=== PATIENT | female | born 1935 | race Caucasian/White ===

== ENCOUNTER → 2017-04-28 | Outpatient (CLI) | payer MEDICARE, OTHER ==
[~2017-04-28] MED LIST: ACYC400 PO; ACYC800 PO; AMLO5 PO; ASPI325 PO; ASPI81EC; ASPI81EC PO; ATOR40TA PO; CALC.25 PO; CALCAVITDA PO; CALPHO600; CARV3.125 PO; CEPH500 PO; CHOL10002 PO; CLOP75 PO; CYAN500 PO; Carafate1 GM/10 ML PO; DIPATR PO; EPIN.3I; ERGO400 PO; ESCI10 PO; ESCI20; ESOM20; FAMO20 PO; FEXO180; FURO100EL PO; FURO20 PO; FURO40 PO; GEMF600; GEMF600 PO; GLYB2.5; HYOS.125 SL; INSR10I SC; INSULANI SUBQ; INSULANPEN SC; ISOMON30 PO; KRILL OIL500 MG PO; LEVSOD25; LEVSOD50 PO; LISI20; LISI5 PO; LORA10ER PO; METF500; METF850 PO; METO50ER PO; MULVITMINF; NITR.4SL SL; OMEP20ER PO; OMEP40CA12 PO; Omeprazole20 M1; Omeprazole20 M1 PO; PANT40 PO; POTA10T PO; POTCHL10ER PO; PRED20 PO; PROBIOTIC1 EAC1 PO; Pepcid20 MG PO; Prinivil10 MG PO; RANI150 PO; RANO500T PO; SERT25 PO; SIMV40; SIMV40 PO; SITA100T2 PO; SUCR1 PO; VITAMIN D-32000 UNIT PO
== END | disposition home or self-care (01) ==
LOC: LAB 17:46 → LAB SHORT 17:46
DX: R30.0 Dysuria (principal)
CPT/HCPCS: 87077; 87086; 87186

== ENCOUNTER 2017-06-12 09:40 | Emergency (ER) | payer MEDICARE ==
[~2017-06-12] VITALS: Ht 152.4 cm; Wt 81.7 kg
[~2017-06-12 09:40] MED LIST changes: -ACYC800 PO; -CEPH500 PO; -Carafate1 GM/10 ML PO; -FURO40 PO; +INSULANI SC; -INSULANPEN SC; -POTA10T PO
[2017-06-12 10:04] LABS: BASOPHILS ABSOLUTE AUTO 0.01 K/mm3 (0.00-0.23); BASOPHILS PERCENT AUTO 0 % (0-2); EOSINOPHILS ABSOLUTE AUTO 0.14 K/mm3 (0.00-0.68); EOSINOPHILS PERCENT AUTO 2 % (0-6); Hemoglobin 11.2 g/dL (11.5-16.0); IMMATURE GRAN ABSOLUTE AUTO 0.04 K/mm3 (0.00-0.10); IMMATURE GRAN PERCENT AUTO 1 % (0-1); LYMPHOCYTES ABSOLUTE AUTO 1.61 K/mm3 (0.84-5.20); LYMPHOCYTES PERCENT AUTO 25 % (21-46); MONOCYTES ABSOLUTE AUTO 0.47 K/mm3 (0.16-1.47); MONOCYTES PERCENT AUTO 7 % (4-13); Mean Corpuscular HGB 30.6 pg (26.0-34.0); Mean Corpuscular Volume 96 fL (80-100); Mean Platelet Volume 9.6 fL (9.1-12.4); NEUTROPHILS ABSOLUTE AUTO 4.13 K/mm3 (1.96-9.15); NEUTROPHILS PERCENT AUTO 65 % (41-73); Platelet Count 211 K/mm3 (150-400); RDW Coefficient Variation 15.8 % (11.7-14.2); RDW Standard Deviation 55.1 fL (35.1-46.3); Red Blood Cell Count 3.66 M/mm3 (3.80-5.20)
[2017-06-12] MEDS ORDERED: CLOP75 PO (10:06)
[2017-06-12 10:19] LABS: Alanine Aminotransfer (ALT/SGP 22 U/L (12-78); Albumin/Globulin Ratio 0.8 (0.8-1.8); Alk Phos 82 U/L (50-136); Anion Gap 5 mmol/L (6-16); Aspartate Aminotrans (AST/SGOT 23 U/L (12-37); Bilirubin, Total 0.5 mg/dL (0.1-1.0); Blood Urea Nitrogen 21 mg/dL (8-24); Bun/Creatinine Ratio 15.1 (12.0-20.0); CO2, Blood 28 mmol/L (21-32); Calcium, Blood 8.3 mg/dL (8.5-10.1); Chloride, Blood 109 mmol/L (98-108); Creatinine, Blood 1.39 mg/dL (0.40-1.00); Globulin, Blood 3.7 g/dL (2.2-4.0); Glomerular Filtration Rate 39 (60-); Glucose, Blood 79 mg/dL (70-99); Potassium, Blood 3.7 mmol/L (3.5-5.5); Sodium, Blood 142 mmol/L (136-145); Total Protein, Blood 6.7 g/dL (6.4-8.2); Troponin I <0.015 ng/mL (0.000-0.040)
== END 2017-06-12 13:58 | disposition home or self-care (01) ==
LOC: ER 09:40
PROVIDERS: Emergency Medicine
DX: R55 Syncope and collapse (principal); S50.01XA Contusion of right elbow, initial encounter; S20.411A Abrasion of right back wall of thorax, initial encounter; I25.2 Old myocardial infarction; Z87.891 Personal history of nicotine dependence; Z88.0 Allergy status to penicillin; Z88.2 Allergy status to sulfonamides; Z88.8 Allergy status to other drugs, medicaments and biological substances; Z91.018 Allergy to other foods; Z91.013 Allergy to seafood; Z91.010 Allergy to peanuts; Z79.899 Other long term (current) drug therapy; Z79.4 Long term (current) use of insulin; W18.30XA Fall on same level, unspecified, initial encounter; Y92.002 Bathroom of unspecified non-institutional (private) residence as the place of occurrence of the external cause
CPT/HCPCS: 71046; 80053; 84484; 85025; 93005; 93010; 99284; J7120

== ENCOUNTER → 2017-07-29 | Outpatient (CLI) | payer MEDICARE ==
[2017-07-30 12:58] LABS: Percent Saturation 34.1 % (15.0-50.0)
== END ==
LOC: LAB SHORT 12:31
PROVIDERS: Internal Medicine Hematology & Oncology
DX: R53.83 Other fatigue (principal); R55 Syncope and collapse; D50.8 Other iron deficiency anemias; D50.9 Iron deficiency anemia, unspecified; E53.8 Deficiency of other specified B group vitamins
CPT/HCPCS: 82607; 82728; 82746; 83540; 83550

== ENCOUNTER 2017-08-13 14:11 | Emergency (ER) | payer MEDICARE ==
[~2017-08-13] VITALS: Ht 152.4 cm; Wt 81.7 kg
[~2017-08-13 14:11] MED LIST changes: -INSULANI SC; +INSULANPEN SC
[2017-08-13] MEDS ORDERED: FURO40 PO (14:42)
[2017-08-13] MEDS ORDERED: Omeprazole20 M1 PO (14:43)
[2017-08-13 14:55] LABS: Source, Urine Clean Catch
[2017-08-13 15:03] LABS: BASOPHILS ABSOLUTE AUTO 0.01 K/mm3 (0.00-0.23); BASOPHILS PERCENT AUTO 0 % (0-2); EOSINOPHILS ABSOLUTE AUTO 0.07 K/mm3 (0.00-0.68); EOSINOPHILS PERCENT AUTO 1 % (0-6); Hematocrit 36.8 % (33.0-51.0); Hemoglobin 11.9 g/dL (11.5-16.0); IMMATURE GRAN ABSOLUTE AUTO 0.04 K/mm3 (0.00-0.10); IMMATURE GRAN PERCENT AUTO 1 % (0-1); LYMPHOCYTES ABSOLUTE AUTO 1.78 K/mm3 (0.84-5.20); LYMPHOCYTES PERCENT AUTO 26 % (21-46); MONOCYTES ABSOLUTE AUTO 0.61 K/mm3 (0.16-1.47); MONOCYTES PERCENT AUTO 9 % (4-13); Mean Corpuscular HGB 31.7 pg (26.0-34.0); Mean Corpuscular HGB Conc 32.3 g/dL (31.5-36.5); Mean Corpuscular Volume 98 fL (80-100); Mean Platelet Volume 9.5 fL (9.1-12.4); NEUTROPHILS PERCENT AUTO 64 % (41-73); NRBC ABSOLUTE 0.09 K/mm3 (0.00-0.02); NRBC Auto 1.3 /100 WBC (0.0-0.2); Platelet Count 266 K/mm3 (150-400); RDW Standard Deviation 49.4 fL (35.1-46.3); Red Blood Cell Count 3.75 M/mm3 (3.80-5.20); White Blood Cell Count 6.91 K/mm3 (4.00-11.30)
[2017-08-13 15:04] LABS: Bilirubin, Urine Neg (Neg); Blood, Urine Neg (Neg); Glucose Qualitative, Urine Neg (Neg); Ketones, Urine Neg (Neg); Leukocyte Esterase, Urine 1+ (Neg); Nitrite, Urine Neg (Neg); Protein, Urine Neg (Neg); Specific Gravity, Urine 1.025 (1.003-1.022); Urobilinogen, Urine NORM (Normal)
[2017-08-13 15:21] LABS: Appearance, Urine Clear (Clear); Color, Urine Yellow (P-Yellow)
[2017-08-13 15:23] LABS: Bacteria Mod /hpf; Hyaline Casts 0-2 /lpf (0-2); Red Blood Cells, Urine 0-2 /hpf (0-2); Squamous Epithelial Cells Mod /hpf (Few)
[2017-08-13 15:26] LABS: Alanine Aminotransfer (ALT/SGP 16 U/L (12-78); Albumin, Blood 3.5 g/dL (3.4-5.0); Albumin/Globulin Ratio 0.8 (0.8-1.8); Alk Phos 88 U/L (50-136); Anion Gap 9 mmol/L (6-16); Aspartate Aminotrans (AST/SGOT 25 U/L (12-37); Bilirubin, Total 0.6 mg/dL (0.1-1.0); Blood Urea Nitrogen 39 mg/dL (8-24); Bun/Creatinine Ratio 22.8 (12.0-20.0); CO2, Blood 26 mmol/L (21-32); Calcium, Blood 10.4 mg/dL (8.5-10.1); Chloride, Blood 101 mmol/L (98-108); Creatinine, Blood 1.71 mg/dL (0.40-1.00); Globulin, Blood 4.3 g/dL (2.2-4.0); Glomerular Filtration Rate 30 (60-); Glucose, Blood 154 mg/dL (70-99); Potassium, Blood 4.4 mmol/L (3.5-5.5); Sodium, Blood 136 mmol/L (136-145); Total Protein, Blood 7.8 g/dL (6.4-8.2); Troponin I <0.015 ng/mL (0.000-0.040)
[2017-08-13] MEDS ORDERED: CEPH500 PO (16:19)
== END 2017-08-13 17:35 | disposition home or self-care (01) ==
LOC: ER 14:11
PROVIDERS: Physician Assistant
DX: I95.1 Orthostatic hypotension (principal); N39.0 Urinary tract infection, site not specified; Z91.018 Allergy to other foods; Z91.013 Allergy to seafood; Z88.2 Allergy status to sulfonamides; Z88.0 Allergy status to penicillin; Z88.8 Allergy status to other drugs, medicaments and biological substances; Z91.010 Allergy to peanuts; Z79.899 Other long term (current) drug therapy; Z79.4 Long term (current) use of insulin; Z87.891 Personal history of nicotine dependence
CPT/HCPCS: 36415; 80053; 81001; 84484; 85025; 87086; 93005; 93010; 96360; 99283-25; J7030

== ENCOUNTER → 2017-10-25 | Outpatient (CLI) | payer MEDICARE ==
[~2017-10-25] MED LIST changes: +CEPH500 PO; +FURO40 PO
== END | disposition home or self-care (01) ==
LOC: LAB SHORT 14:47 → LAB UCHC 14:47
DX: R30.0 Dysuria (principal)
CPT/HCPCS: 87077; 87086; 87186

== ENCOUNTER → 2018-03-08 | Outpatient (CLI) | payer MEDICARE, OTHER ==
[~2018-03-08] MED LIST changes: +ACYC800 PO; +Carafate1 GM/10 ML PO; +POTA10T PO
== END | disposition home or self-care (01) ==
LOC: LAB 17:35 → LAB SHORT 17:35
DX: N39.0 Urinary tract infection, site not specified (principal)
CPT/HCPCS: 87086

== ENCOUNTER 2019-04-19 06:24 | Day surgery (SDC) | payer MEDICARE ==
[~2019-04-19] VITALS: Ht 154.9 cm; Wt 84.8 kg
[~2019-04-19 06:24] MED LIST changes: +PIOG15 PO; +VITAMIN B122500 MCG PO; +VITAMIN D350 MCG PO
--- NOTE | 2019-04-19 07:04 | NUR ---
INTO SDS VIA WHEELCHAIR. PT DENIES PAIN AT THIS TIME. History, Chart, Medications and Allergies reviewed before start of procedure.Lungs clear T/O to Auscultation. Patient confirms NPO status and agrees with scheduled surgery. Patient reports completing Chlorhexadine shower X2 prior to admission to hospital.Surgical site prepped with 2% Chlorhexidine cloth wipe.
--- NOTE | 2019-04-19 07:39 | NUR ---
NOSYN AND PERIDEX DONE PER ORTHO PROTOCOL.
--- NOTE | 2019-04-19 13:45 | NUR ---
pt arrived to room 217 from pacu s/p r total knee pt denies pain stated she is just tired pt had some ice water only can wiggle toes but cannot feel them stated she can feel her upper thighs dressing c/d/i with polar pack offered food pt declined at this time
--- NOTE | 2019-04-19 15:25 | NUR ---
PT ABLE TO MOVE HER LEGS INC PAIN PO PAIN MEDS GIVEN PHYSICAL THERAPY NOTIFIED TO COME AND WORK WITH PT
--- NOTE | 2019-04-19 16:50 | NUR ---
PT SITTING UP IN CHAIR RESTING
--- NOTE | 2019-04-19 18:22 | NUR ---
PT EATING DINNER MEDS GIVEN SCHED PT VISITING WITH FRIEND
[2019-04-20 04:09] LABS: BASOPHILS ABSOLUTE AUTO 0.01 K/mm3 (0.00-0.23); BASOPHILS PERCENT AUTO 0 % (0-2); EOSINOPHILS PERCENT AUTO 0 % (0-6); Hematocrit 29.3 % (33.0-51.0); Hemoglobin 9.1 g/dL (11.5-16.0); IMMATURE GRAN ABSOLUTE AUTO 0.04 K/mm3 (0.00-0.10); IMMATURE GRAN PERCENT AUTO 0 % (0-1); LYMPHOCYTES ABSOLUTE AUTO 0.87 K/mm3 (0.84-5.20); LYMPHOCYTES PERCENT AUTO 7 % (21-46); MONOCYTES ABSOLUTE AUTO 0.95 K/mm3 (0.16-1.47); MONOCYTES PERCENT AUTO 8 % (4-13); Mean Corpuscular HGB 30.6 pg (26.0-34.0); Mean Corpuscular HGB Conc 31.1 g/dL (31.5-36.5); Mean Corpuscular Volume 99 fL (80-100); Mean Platelet Volume 9.7 fL (9.1-12.4); NEUTROPHILS ABSOLUTE AUTO 9.84 K/mm3 (1.96-9.15); NEUTROPHILS PERCENT AUTO 84 % (41-73); Platelet Count 204 K/mm3 (150-400); RDW Coefficient Variation 13.5 % (11.7-14.2); RDW Standard Deviation 48.7 fL (35.1-46.3); Red Blood Cell Count 2.97 M/mm3 (3.80-5.20); White Blood Cell Count 11.71 K/mm3 (4.00-11.30)
[2019-04-20 04:24] LABS: Bun/Creatinine Ratio 22.7 (12.0-20.0); Calcium, Blood 8.5 mg/dL (8.5-10.1); Creatinine, Blood 1.54 mg/dL (0.40-1.00); Potassium, Blood 4.5 mmol/L (3.5-5.5)
[2019-04-20] MEDS ORDERED: CLOP75 PO (07:12)
--- NOTE | 2019-04-20 07:29 | NUR ---
SUMMARY PT TOLERATING PO PAIN MEDS. REQUIRED 1 DOSE OF DILAUDID 0.5 MG FOR BREAKTHROUGH AND SLEPT AFTER. REPORTS PLEASED WITH PAIN CONTROL. VOIDING.
[2019-04-20] MEDS ORDERED: Plavix75 MG PO (07:43)
--- NOTE | 2019-04-20 15:58 | NUR ---
PATIENT NOTE: PATIENT WAS BLADDER SCANNED DUE TO RETENTION WITH THE RESULT NUMBER OF 245 ML. SHE WAS ABLE TO AMBULATE WITH ASSISTANCE TO THE BATHROOM. SHE DID NOT COMPLAIN OF DIZZINESS OR NAUSEA LIKE SHE HAD THE LAST TIME SHE WAS TRYING TO AMBULATE TO THE BATHROOM. SHE FELT THAT SHE HAD "EMPTIED EVERYTHING" WHILE IN THE BATHROOM. PATIENT WAS ABLE TO VOID 150 ML, AND THEN WAS BLADDER SCANNED AFTER WITH 195 ML LEFT IN HER BLADDER. WILL CONTINUE TO MONITOR AND ENCOURAGE AMBULATING TO THE BATHROOM DURING SHIFT.
--- NOTE | 2019-04-20 19:38 | NUR ---
SHIFT SUMMARY: PATIENT'S BP WAS GOING ON THE LOWER END EARLIER IN THE DAY, BUT HAS BEEN BACK TO BASELINE. THE REST OF HER VITALS HAVE BEEN WITHIN NORMAL LIMITS. PATIENT HAD SOME RETENTION WITH VOIDING HER URINE, BUT WAS ABLE TO FINALLY VOID 150 EARILER (SEE OTHER NOTES FOR DETAIL). PATIENT HAS NOT NEEDED ANY PAIN MEDICATIONS THROUGHOUT SHIFT, AND HAS ONLY RECIEVED TYLENOL PERSCRIBED. SHE HAS BEEN ABLE TO AMBULATE WITH A WALKER AROUND THE ROOM WITH ONE PERSON ASSIST. SHE HAS HAD ICE ON HER SURGICAL SITE FOR MOST OF THE DAY, AND IS CURRENTLY TAKING A BREAK. SHE HASN'T BEEN EATING MUCH DURING THE DAY BECAUSE OF HER GERD SINCE HER THROAT HAS BEEN BURNING. SHE CURRENTLY HAS ATTENDS ON JUST IN CASE OF AN ACCIDENT TONIGHT. SHE HAS A SENSE OF URGENCY WHEN SHE HAS TO GO. SHE HAS HER SARAI HOSE SOCKS ON AND THE SCDS BILATERALLY. PATIENT HAS BEEN PLEASENT THROUGHOUT THE SHIFT AND HAS BEEN POLITE WELL. SURGICAL SITE IS D/C/I.
--- NOTE | 2019-04-20 20:00 | NUR ---
SHIFT SUMMARY PAIN HAS BEEN MANAGED WITH TYLENOL THIS SHIFT. PT HAS HAD SOME NAUSEA AND GERD T/O THE DAY. SHE WAS UNABLE TO TOLERATE FOOD AND FLUIDS. PT RESTARED ON IV FLUIDS. MAALOX GIVEN FOR GERD, ZOFRAN FOR NAUSEA. PAIN HAS BEEN MINIMAL. PT WILL HAVE THERAPY TOMORROW AND HOPEFULLY DISCHARGE.
--- NOTE | 2019-04-21 06:38 | NUR ---
SUMMARY PT AWAKE AND UP IN CHAIR THIS AM. REPORTS FEELING MUCH BETTER. PT WAS GIVEN PHENERGAN 12.5 MG X2 TONIGHT.
--- NOTE | 2019-04-21 07:56 | NUR ---
LOW BLOOD GLUCOSE PT PROVIDED WITH APPLE JUICE FOR LOW BLOOD GLUCOSE OF 66. WILL CONTINUE TO MONITOR.
--- NOTE | 2019-04-21 09:09 | NUR ---
SHIFT ASSESSMENT SHIFT ASSESSMENT BY STUDENT NURSE GERALDINE EVERETT, WAS REVIEWED AND THIS RN AGREES WITH DOCUMENTATION. PT IS SITTING UP IN HER CHAIR AT THIS TIME EATING BREAKFAST. SHE REPORTS HER PAIN IS INCREASED FROM YESTERDAY AND RATES PAIN AT 4/10. SHE IS ABLE TO AMBULATE AND USES HER WALKER APPROPRIATELY. PTS L KNEE IS SWOLLEN, AQUACEL DRESSING IN PLACE WITH SCANT RED DRAINAGE. PT IS ALERT AND ORIENTED, SHE CALLS APPROPRIATELY. WILL CONTINUE TO MONITOR.
--- NOTE | 2019-04-21 13:01 | NUR ---
DISCHARGE PT AND HER CLAIMS AGENT RIGHT OF WAY WERE PROVIDED WITH WRITTEN AND VERBAL DISCHARGE INSTRUCTIONS. THEY REPORTED UNDERSTANDING INSTRUCTIONS. DRESSINGS PROVIDED FOR DRESSING CHANGES. PT REPORTED SHE HAD HER PRESCRIPTIONS AT HOME. PHENERGAN CALLED IN PER DOCTOR ORDER. PT ESCORTED OUT IN W/C AND ASSISTED INTO VEHICLE FOR TRANSPORT HOME.
== END 2019-04-21 12:55 | disposition home or self-care (01) ==
LOC: ORSCMMR 06:24 → ORD 07:30 → ORSCMMR 09:45 → SURS 13:45 → ORSCMMR 04-21 12:55
PROVIDERS: Orthopaedic Surgery
PROC: 0SRC0J9 Replacement of Right Knee Joint with Synthetic Substitute, Cemented, Open Approach (ICD-10-PCS; principal; 2019-04-19 09:45)
PROC: 8E0YXBZ Computer Assisted Procedure of Lower Extremity (ICD-10-PCS; principal; 2019-04-19 09:45)
DX: M17.11 Unilateral primary osteoarthritis, right knee (principal); E11.9 Type 2 diabetes mellitus without complications; K21.9 Gastro-esophageal reflux disease without esophagitis; E66.01 Morbid (severe) obesity due to excess calories; Z68.35 Body mass index [BMI] 35.0-35.9, adult
CPT/HCPCS: 36415; 73560-RT; 80048; 82947; 83735; 85025; 88300; 97110; 97116; 97162; 97166; 97530; 97535; A9270-GY; C1713; C1776; J0171; J0735; J1100; J1170; J1885; J2250; J2405; J2704; J2765; J2795; J3010; J3370; J7120

== ENCOUNTER 2019-08-02 06:59 | Day surgery (SDC) | payer MEDICARE ==
[~2019-08-02] VITALS: Ht 154.9 cm; Wt 84.3 kg
[~2019-08-02 06:59] MED LIST changes: +BASAGLAR K100 UNIT/1 SC; -INSULANPEN SC; +Plavix75 MG PO
--- NOTE | 2019-08-02 08:28 | NUR ---
08/02/19 0828 Michelle Bourgeois 2 IV ATTEMPTS BY JST 1ST IN L AC INFILTRATED 2NG IN R AC WAS SUCCESSFUL
--- NOTE | 2019-08-02 09:46 | NUR ---
08/02/19 0946 Jeimy Gorman GELFOAM SOAKED IN EPI FOR HEMOSTASIS.
--- NOTE | 2019-08-02 14:02 | NUR ---
08/02/19 1402 [place],Sharri DRESSING TO RIGHT EAR SMALL AMOUNT OF BLOOD ON GAUZE UNDER SHEILD. GAUZE REMOVED AND REPLACED WITH CLEAN GAUZE.
== END 2019-08-02 14:20 | disposition home or self-care (01) ==
LOC: ORSCSDS 06:59
PROVIDERS: Otolaryngology
PROC: 0NR507Z Replacement of Right Temporal Bone with Autologous Tissue Substitute, Open Approach (ICD-10-PCS; principal; 2019-08-02 08:15)
DX: H71.11 Cholesteatoma of tympanum, right ear (principal); I25.10 Atherosclerotic heart disease of native coronary artery without angina pectoris; E11.9 Type 2 diabetes mellitus without complications; E66.01 Morbid (severe) obesity due to excess calories; Z68.35 Body mass index [BMI] 35.0-35.9, adult; Z79.4 Long term (current) use of insulin; Z79.899 Other long term (current) drug therapy
CPT/HCPCS: 82947; J0330; J1100; J2405; J3010; J7120

== ENCOUNTER 2019-12-01 05:35 | Emergency (ER) | payer MEDICARE ==
[~2019-12-01] VITALS: Ht 154.9 cm; Wt 81.7 kg
[2019-12-01 06:35] LABS: Source, Urine Clean Catch
[2019-12-01 06:41] LABS: Bilirubin, Urine Neg (Neg); Blood, Urine 1+ (Neg); Glucose Qualitative, Urine Neg (Neg); Ketones, Urine Neg (Neg); Leukocyte Esterase, Urine 2+ (Neg); Nitrite, Urine Pos (Neg); Protein, Urine Neg (Neg); Specific Gravity, Urine 1.015 (1.003-1.022); Urobilinogen, Urine NORM (Normal)
[2019-12-01 06:48] LABS: BASOPHILS ABSOLUTE AUTO 0.01 K/mm3 (0.00-0.23); BASOPHILS PERCENT AUTO 0 % (0-2); EOSINOPHILS ABSOLUTE AUTO 0.12 K/mm3 (0.00-0.68); EOSINOPHILS PERCENT AUTO 1 % (0-6); Hematocrit 32.1 % (33.0-51.0); Hemoglobin 9.9 g/dL (11.5-16.0); IMMATURE GRAN ABSOLUTE AUTO 0.04 K/mm3 (0.00-0.10); IMMATURE GRAN PERCENT AUTO 1 % (0-1); LYMPHOCYTES ABSOLUTE AUTO 2.06 K/mm3 (0.84-5.20); LYMPHOCYTES PERCENT AUTO 24 % (21-46); MONOCYTES ABSOLUTE AUTO 0.72 K/mm3 (0.16-1.47); MONOCYTES PERCENT AUTO 8 % (4-13); Mean Corpuscular HGB 29.7 pg (26.0-34.0); Mean Corpuscular HGB Conc 30.8 g/dL (31.5-36.5); Mean Corpuscular Volume 96 fL (80-100); Mean Platelet Volume 9.9 fL (9.1-12.4); NEUTROPHILS ABSOLUTE AUTO 5.83 K/mm3 (1.96-9.15); NEUTROPHILS PERCENT AUTO 66 % (41-73); Platelet Count 228 K/mm3 (150-400); RDW Coefficient Variation 14.6 % (11.7-14.2); RDW Standard Deviation 51.2 fL (35.1-46.3); Red Blood Cell Count 3.33 M/mm3 (3.80-5.20); White Blood Cell Count 8.78 K/mm3 (4.00-11.30)
[2019-12-01 06:50] LABS: Appearance, Urine Hazy (Clear); Color, Urine Yellow (P-Yellow)
[2019-12-01 06:52] LABS: Bacteria Many /hpf; Red Blood Cells, Urine 0-2 /hpf (0-2); Squamous Epithelial Cells Few /hpf (Few)
[2019-12-01 07:01] LABS: Albumin, Blood 3.3 g/dL (3.4-5.0); Albumin/Globulin Ratio 0.8 (0.8-1.8); Bilirubin, Total 0.7 mg/dL (0.1-1.0); Bun/Creatinine Ratio 22.3 (12.0-20.0); Calcium, Blood 9.2 mg/dL (8.5-10.1); Creatinine, Blood 1.21 mg/dL (0.40-1.00); Globulin, Blood 4.1 g/dL (2.2-4.0); Potassium, Blood 3.7 mmol/L (3.5-5.5); Total Protein, Blood 7.4 g/dL (6.4-8.2)
[2019-12-01] MEDS ORDERED: Cefpodoxime Pr200 MG PO (08:28)
== END 2019-12-01 10:20 | disposition home or self-care (01) ==
LOC: ER 05:35
PROVIDERS: Emergency Medicine
DX: N39.0 Urinary tract infection, site not specified (principal); I25.2 Old myocardial infarction; I25.10 Atherosclerotic heart disease of native coronary artery without angina pectoris; E78.5 Hyperlipidemia, unspecified; K21.9 Gastro-esophageal reflux disease without esophagitis; I12.9 Hypertensive chronic kidney disease with stage 1 through stage 4 chronic kidney disease, or unspecified chronic kidney disease; E11.22 Type 2 diabetes mellitus with diabetic chronic kidney disease; N18.30 Chronic kidney disease, stage 3 unspecified; Z79.4 Long term (current) use of insulin; Z79.899 Other long term (current) drug therapy; Z91.013 Allergy to seafood; Z91.018 Allergy to other foods; Z88.2 Allergy status to sulfonamides; Z88.0 Allergy status to penicillin; Z88.8 Allergy status to other drugs, medicaments and biological substances; Z91.010 Allergy to peanuts
CPT/HCPCS: 36415; 80053; 81001; 85025; 87077; 87086; 87186; 93005; 93010; 96361; 96365; 96375; 99285-25; J0696; J2405; J7030

== ENCOUNTER → 2020-09-29 | Outpatient (CLI) | payer MEDICARE ==
[~2020-09-29] MED LIST changes: +AZIT250; +Cefpodoxime Pr200 MG PO
[2020-10-02 09:10] LABS: CORONAVIRUS (COVID19) CSH-NRL Positive (Negative)
== END | disposition home or self-care (01) ==
LOC: LAB 14:09 → LAB SHORT 14:09
PROVIDERS: Physician Assistant
DX: U07.1 COVID-19 (principal)
CPT/HCPCS: U0003

== ENCOUNTER 2020-10-01 03:32 | Emergency (ER) | payer MEDICARE ==
[~2020-10-01] VITALS: Ht 154.9 cm; Wt 83.5 kg
[~2020-10-01 03:32] MED LIST changes: -AZIT250
[2020-10-01 03:50] LABS: BASOPHILS ABSOLUTE AUTO 0.01 K/mm3 (0.00-0.23); BASOPHILS PERCENT AUTO 0 % (0-2); EOSINOPHILS ABSOLUTE AUTO 0.07 K/mm3 (0.00-0.68); EOSINOPHILS PERCENT AUTO 1 % (0-6); Hematocrit 32.5 % (33.0-51.0); Hemoglobin 10.6 g/dL (11.5-16.0); IMMATURE GRAN ABSOLUTE AUTO 0.04 K/mm3 (0.00-0.10); IMMATURE GRAN PERCENT AUTO 1 % (0-1); LYMPHOCYTES ABSOLUTE AUTO 1.43 K/mm3 (0.84-5.20); LYMPHOCYTES PERCENT AUTO 17 % (21-46); MONOCYTES ABSOLUTE AUTO 0.84 K/mm3 (0.16-1.47); MONOCYTES PERCENT AUTO 10 % (4-13); Mean Corpuscular HGB 30.6 pg (26.0-34.0); Mean Corpuscular HGB Conc 32.6 g/dL (31.5-36.5); Mean Corpuscular Volume 94 fL (80-100); Mean Platelet Volume 9.3 fL (9.1-12.4); NEUTROPHILS ABSOLUTE AUTO 6.26 K/mm3 (1.96-9.15); NEUTROPHILS PERCENT AUTO 72 % (41-73); Platelet Count 212 K/mm3 (150-400); RDW Standard Deviation 51.8 fL (35.1-46.3); Red Blood Cell Count 3.46 M/mm3 (3.80-5.20); White Blood Cell Count 8.65 K/mm3 (4.00-11.30)
[2020-10-01 04:05] LABS: Albumin, Blood 3.1 g/dL (3.4-5.0); Albumin/Globulin Ratio 0.7 (0.8-1.8); Bilirubin, Total 0.6 mg/dL (0.1-1.0); Bun/Creatinine Ratio 15.2 (12.0-20.0); Calcium, Blood 9.2 mg/dL (8.5-10.1); Creatinine, Blood 1.32 mg/dL (0.40-1.00); Globulin, Blood 4.2 g/dL (2.2-4.0); Potassium, Blood 3.7 mmol/L (3.5-5.5); Total Protein, Blood 7.3 g/dL (6.4-8.2)
[2020-10-01] MEDS ORDERED: AZIT250 (04:26)
[2020-10-01 04:47] LABS: SARS-Cov-2 (COVID-19) PCR, MMC POSITIVE (NEGATIVE)
== END 2020-10-01 06:49 | disposition home or self-care (01) ==
LOC: ER 03:32
PROVIDERS: Emergency Medicine
DX: U07.1 COVID-19 (principal); I25.2 Old myocardial infarction; Z91.81 History of falling; Z87.891 Personal history of nicotine dependence; Z95.5 Presence of coronary angioplasty implant and graft
CPT/HCPCS: 36415; 80053; 85025; 93005; 93010; 96361; 99285-25; J7030; M0243; Q0243; U0004

== ENCOUNTER 2021-01-14 13:51 | Emergency (ER) | payer MEDICARE ==
[~2021-01-14] VITALS: Ht 152.4 cm; Wt 81.7 kg
[~2021-01-14 13:51] MED LIST changes: +AZIT250
== END 2021-01-14 14:59 | disposition left against medical advice (07) ==
LOC: ER 13:51
DX: Z53.21 Procedure and treatment not carried out due to patient leaving prior to being seen by health care provider (principal)

== ENCOUNTER 2021-11-12 15:46 | Emergency (ER) | payer MEDICARE ==
[~2021-11-12] VITALS: Ht 154.9 cm; Wt 78.9 kg
[2021-11-12 18:00] LABS: Source, Urine Clean Catch
[2021-11-12 18:20] LABS: Appearance, Urine Hazy (Clear); Bilirubin, Urine Neg (Neg); Blood, Urine 1+ (Neg); Color, Urine Yellow (P-Yellow); Glucose Qualitative, Urine Neg (Neg); Ketones, Urine Neg (Neg); Leukocyte Esterase, Urine 2+ (Neg); Nitrite, Urine Pos (Neg); Protein, Urine Neg (Neg); Urobilinogen, Urine NORM (Normal)
[2021-11-12 18:27] LABS: Bacteria Many /hpf; Red Blood Cells, Urine 0-2 /hpf (0-2); Squamous Epithelial Cells Few /hpf (Few)
[2021-11-12] MEDS ORDERED: CEPH500 PO (20:23)
[2021-11-12] MEDS ORDERED: Norco 5-325 Ta1 EACH PO (20:23)
== END 2021-11-12 20:47 | disposition home or self-care (01) ==
LOC: ER 15:46
PROVIDERS: Physician Assistant
DX: S22.089A Unspecified fracture of T11-T12 vertebra, initial encounter for closed fracture (principal); W19.XXXA Unspecified fall, initial encounter; N39.0 Urinary tract infection, site not specified; Z91.010 Allergy to peanuts; Z88.0 Allergy status to penicillin; Z91.013 Allergy to seafood; Z88.2 Allergy status to sulfonamides; Z88.8 Allergy status to other drugs, medicaments and biological substances; Z91.018 Allergy to other foods; Z79.899 Other long term (current) drug therapy; Z87.891 Personal history of nicotine dependence
CPT/HCPCS: 72070; 72100; 81001; 87077; 87086; 87186; 99284-25; A9270

== ENCOUNTER 2022-01-18 16:21 | Emergency (ER) | payer MEDICARE ==
[~2022-01-18] VITALS: Ht 154.9 cm; Wt 78.5 kg
[~2022-01-18 16:21] MED LIST changes: +Norco 5-325 Ta1 EACH PO
[2022-01-18] MEDS ORDERED: PIOGLITAZONE HC15 MG PO (17:02)
[2022-01-18 19:03] LABS: Albumin, Blood 3.3 g/dL (3.4-5.0); Albumin/Globulin Ratio 0.9 (0.8-1.8); Bilirubin, Total 0.8 mg/dL (0.1-1.0); Bun/Creatinine Ratio 19.4 (12.0-20.0); Calcium, Blood 8.9 mg/dL (8.5-10.1); Creatinine, Blood 0.98 mg/dL (0.40-1.00); Globulin, Blood 3.7 g/dL (2.2-4.0); Potassium, Blood 4.3 mmol/L (3.5-5.5)
[2022-01-18 19:13] LABS: Influenza B, PCR NEGATIVE (NEGATIVE); Resp Syncytial Virus, PCR NEGATIVE (NEGATIVE); SARS-Cov-2 (COVID-19) PCR, MMC NEGATIVE (NEGATIVE)
[2022-01-18 19:14] LABS: Influenza A, PCR POSITIVE (NEGATIVE)
[2022-01-18 19:25] LABS: BASOPHILS ABSOLUTE AUTO 0.01 K/mm3 (0.00-0.23); BASOPHILS PERCENT AUTO 0 % (0-2); EOSINOPHILS ABSOLUTE AUTO 0.02 K/mm3 (0.00-0.68); EOSINOPHILS PERCENT AUTO 0 % (0-6); Hematocrit 28.7 % (33.0-51.0); Hemoglobin 9.5 g/dL (11.5-16.0); IMMATURE GRAN ABSOLUTE AUTO 0.02 K/mm3 (0.00-0.10); IMMATURE GRAN PERCENT AUTO 0 % (0-1); LYMPHOCYTES ABSOLUTE AUTO 0.37 K/mm3 (0.84-5.20); LYMPHOCYTES PERCENT AUTO 7 % (21-46); MONOCYTES ABSOLUTE AUTO 0.63 K/mm3 (0.16-1.47); MONOCYTES PERCENT AUTO 12 % (4-13); Mean Corpuscular HGB 32.1 pg (26.0-34.0); Mean Corpuscular HGB Conc 33.1 g/dL (31.5-36.5); Mean Corpuscular Volume 97 fL (80-100); Mean Platelet Volume 9.2 fL (9.1-12.4); NEUTROPHILS ABSOLUTE AUTO 4.39 K/mm3 (1.96-9.15); NEUTROPHILS PERCENT AUTO 81 % (41-73); Platelet Count 171 K/mm3 (150-400); RDW Standard Deviation 49.7 fL (35.1-46.3); Red Blood Cell Count 2.96 M/mm3 (3.80-5.20); White Blood Cell Count 5.44 K/mm3 (4.00-11.30)
[2022-01-18 22:08] LABS: Source, Urine Clean Catch
[2022-01-18 22:11] LABS: Bilirubin, Urine Neg (Neg); Blood, Urine 3+ (Neg); Glucose Qualitative, Urine Neg (Neg); Ketones, Urine 2+ (Neg); Leukocyte Esterase, Urine 2+ (Neg); Nitrite, Urine Pos (Neg); Protein, Urine Neg (Neg); Specific Gravity, Urine 1.015 (1.003-1.022); Urobilinogen, Urine NORM (Normal)
[2022-01-18 22:37] LABS: Appearance, Urine Hazy (Clear); Color, Urine Yellow (P-Yellow)
[2022-01-18] MEDS ORDERED: NITR100CA PO (23:04)
[2022-01-19 00:04] LABS: Bacteria Many /hpf; Squamous Epithelial Cells Few /hpf (Few)
== END 2022-01-19 00:29 | disposition home or self-care (01) ==
LOC: ER 16:21
PROVIDERS: Student in an Organized Health Care Education/Training Program
DX: S22.089A Unspecified fracture of T11-T12 vertebra, initial encounter for closed fracture (principal); J10.1 Influenza due to other identified influenza virus with other respiratory manifestations; N39.0 Urinary tract infection, site not specified; E11.9 Type 2 diabetes mellitus without complications; I25.2 Old myocardial infarction; W19.XXXA Unspecified fall, initial encounter; Z91.013 Allergy to seafood; Z91.018 Allergy to other foods; Z88.2 Allergy status to sulfonamides; Z88.0 Allergy status to penicillin; Z88.8 Allergy status to other drugs, medicaments and biological substances; Z91.010 Allergy to peanuts; Z79.899 Other long term (current) drug therapy; Z79.890 Hormone replacement therapy; Z79.4 Long term (current) use of insulin; Z87.891 Personal history of nicotine dependence; Z20.822 Contact with and (suspected) exposure to COVID-19
CPT/HCPCS: 0241U; 36415; 72070; 80053; 81001; 84484; 85025; 87077; 87086; 87186; A9270; J1885; J7030